=== PATIENT | male | born 1980 | race Two or more races ===

== ENCOUNTER 2021-04-24 01:59 | Emergency (ER) | payer MEDICAID, OTHER ==
[~2021-04-24] VITALS: Ht 170.2 cm; Wt 81.6 kg
[~2021-04-24 01:59] MED LIST: ACET-1079; NAPR500T31; OMEP20TA44; TIZA4TAB7; TRAM-411; ZOLP5TAB
[2021-04-24 05:31] VITALS: BP 135/79
[2021-04-24] MEDS ORDERED: KETOROLAC TROMETH 60MG/2ML VIAL IM ONE (06:00)
[2021-04-24] MEDS ORDERED: methylPREDNISolone SOD SUCC 125 MG/2 ML VL IM ONE (06:00)
== END 2021-04-24 06:32 | disposition home or self-care (01) ==
LOC: ER 02:00
DX: S50.12XA Contusion of left forearm, initial encounter (principal); S50.11XA Contusion of right forearm, initial encounter; S20.229A Contusion of unspecified back wall of thorax, initial encounter; R51.9 Headache, unspecified; M62.838 Other muscle spasm; Z79.899 Other long term (current) drug therapy; Z88.8 Allergy status to other drugs, medicaments and biological substances; W01.0XXA Fall on same level from slipping, tripping and stumbling without subsequent striking against object, initial encounter; Y93.89 Activity, other specified; Y92.89 Other specified places as the place of occurrence of the external cause; Y99.8 Other external cause status
CPT/HCPCS: 70450; 72125; 72128; 96372; 99285; J1885; J2930

== ENCOUNTER 2022-02-07 21:37 | Emergency (ER) | payer MEDICAID ==
[~2022-02-07] VITALS: Ht 172.7 cm; Wt 91.0 kg
[2022-02-08] MEDS ORDERED: ALBUAER3 IN (01:25)
[2022-02-08] MEDS ORDERED: CEPH-509 PO (01:25)
[2022-02-08] MEDS ORDERED: PRED20TA2 PO (01:25)
[2022-02-08 04:03] VITALS: BP 128/60
== END 2022-02-08 04:04 | disposition home or self-care (01) ==
LOC: ER 21:37
DX: U07.1 COVID-19 (principal); Z88.8 Allergy status to other drugs, medicaments and biological substances
CPT/HCPCS: 36415; 71045